=== PATIENT | female | born 1935 | race African-American/Black ===

== ENCOUNTER 2018-03-19 13:06 | Inpatient (IN) | payer MEDICARE ==
--- NOTE | 2018-03-19 14:12 | Emergency Department Report ---
ED Chest Pain HPI - General Chief Complaint: Chest Pain Stated Complaint: CHEST PAIN Time Seen by Provider: 03/19/18 13:42 Source: patient, educational sign language interpreter Mode of arrival: Ambulatory Limitations: Language Barrier - History of Present Illness Initial Comments: 82-year-old female with history of CAD with stents in the past presents to the ED with complaints of chest pain since 1 AM. Patient describes the pain as pressure and heaviness, with associated shortness of breath. The patient felt like she was unable to catch her breath. Patient states the symptoms were constant for 3 hours. Per granddaughter, patient performed an ritual known as coin rubbing. Fleming was rubbed over anterior and posterior chest wall. Patient reported improvement of pain following this. Granddaughter states when she was driving the patient to the ER she noticed the patient was sweating profusely. Patient now reports improvement of pain, no shortness of breath at this time. Patient states over the last couple days she felt like she was getting sick, with headache and fevers. Patient did not get flu shot this year. MD Complaint: chest pain -: hour(s) (12) Onset: during rest Pain Location: substernal Pain Radiation: none Severity: moderate Quality: pressure Consistency: constant Improves With: other (massaging chest, coin rubbing on chest wall) Worsens With: nothing re: diaphoresis, dyspnea. denies: nausea, vomting Other Symptoms: fever. denies: cough, leg swelling Treatments Prior to Arrival: none - Related Data Home Medications Medication Instructions Recorded Confirmed Last Taken No Known Home Medications [No 03/19/18 03/19/18 Unknown Reported Home Medications] Allergies Allergy/AdvReac Type Severity Reaction Status Date / Time No Known Allergies Allergy Unverified 09/19/13 14:04 Heart Score - HEART Score History: Moderately suspicious EKG: Non-specific Age: > 65 Risk factors: > 3 risk factors or hx of atherosclerotic disease Troponin: < normal limit HEART Score: 6 ED Review of Systems ROS: Stated complaint: CHEST PAIN Other details as noted in HPI Comment: All other systems reviewed and negative Constitutional: diaphoresis, fever Respiratory: shortness of breath. denies: cough Cardiovascular: chest pain Gastrointestinal: denies: abdominal pain, nausea, vomiting Musculoskeletal: other (denies leg pain and swelling) Neurological: headache ED Past Medical Hx - Past Medical History Previous Medical History?: Yes Hx CVA: Yes Hx HIV: No Additional medical history: SANJUANITA - Surgical History Past Surgical History?: Yes Additional Surgical History: cataracts - Social History Smoking Status: Never Smoker Substance Use Type: None - Medications Home Medications: Home Medications Medication Instructions Recorded Confirmed Last Taken Type No Known Home Medications [No 03/19/18 03/19/18 Unknown History Reported Home Medications] ED Physical Exam - General Limitations: Language Barrier General appearance: alert, in no apparent distress - Head Head exam: Present: atraumatic, normocephalic - Eye Eye exam: Present: normal appearance - ENT ENT exam: Present: mucous membranes moist - Neck Neck exam: Present: normal inspection - Respiratory Respiratory exam: Present: rales (minimal rales in left lung base). Absent: respiratory distress - Cardiovascular Cardiovascular Exam: Present: regular rate, normal rhythm - GI/Abdominal GI/Abdominal exam: Present: soft. Absent: distended, tenderness - Extremities Exam Extremities exam: Absent: pedal edema, calf tenderness - Neurological Exam Neurological exam: Present: alert, oriented X3 - Psychiatric Psychiatric exam: Present: normal affect, normal mood - Skin Skin exam: Present: warm, dry, intact, normal color, other (bruising to anterior and posterior chest wall from coin rubbing) ED Course Vital Signs 03/19/18 03/19/18 03/19/18 13:28 13:54 14:00 Temperature 98.7 F Pulse Rate 61 Pulse Rate [ Apical] Pulse Rate [ Left Radial] Pulse Rate [ Right Radial] Respiratory 16 Rate Blood Pressure 111/47 O2 Sat by Pulse 100 98 98 Oximetry 03/19/18 03/19/18 03/19/18 14:10 14:20 14:30 Temperature Pulse Rate Pulse Rate [ Apical] Pulse Rate [ Left Radial] Pulse Rate [ Right Radial] Respiratory Rate Blood Pressure O2 Sat by Pulse 97 97 98 Oximetry 03/19/18 03/19/18 03/19/18 14:40 14:50 15:01 Temperature Pulse Rate 67 79 Pulse Rate [ Apical] Pulse Rate [ Left Radial] Pulse Rate [ Right Radial] Respiratory 20 17 Rate Blood Pressure 126/62 126/62 120/74 O2 Sat by Pulse 97 97 98 Oximetry 03/19/18 03/19/18 03/19/18 15:11 15:25 15:31 Temperature Pulse Rate 67 72 76 Pulse Rate [ Apical] Pulse Rate [ Left Radial] Pulse Rate [ Right Radial] Respiratory 22 15 16 Rate Blood Pressure 120/74 120/74 120/74 O2 Sat by Pulse 98 96 98 Oximetry 03/19/18 03/19/18 03/19/18 15:41 15:51 16:01 Temperature Pulse Rate 76 72 72 Pulse Rate [ Apical] Pulse Rate [ Left Radial] Pulse Rate [ Right Radial] Respiratory 15 20 25 H Rate Blood Pressure 120/74 120/74 120/74 O2 Sat by Pulse 99 98 97 Oximetry 03/19/18 03/19/18 03/19/18 16:11 16:21 16:31 Temperature Pulse Rate 71 69 69 Pulse Rate [ Apical] Pulse Rate [ Left Radial] Pulse Rate [ Right Radial] Respiratory 19 22 22 Rate Blood Pressure 120/74 120/74 120/74 O2 Sat by Pulse 98 98 97 Oximetry 03/19/18 03/19/18 03/19/18 16:41 16:51 16:55 Temperature Pulse Rate 67 66 Pulse Rate [ 61 Apical] Pulse Rate [ 61 Left Radial] Pulse Rate [ 61 Right Radial] Respiratory 20 19 18 Rate Blood Pressure 120/74 120/74 O2 Sat by Pulse 98 98 98 Oximetry ED Medical Decision Making - Lab Data Result diagrams: 03/19/18 14:01 03/19/18 14:01 - EKG Data -: EKG Interpreted by Ma EKG shows normal: sinus rhythm, axis, intervals Rate: normal - EKG Data Interpretation: LVH, other (RBBB, T wave inversions inferolaterally, ) - Radiology Data Radiology results: report reviewed, image reviewed - Medical Decision Making 82-year-old female with chest pain and shortness of breath today. History of CAD in the past with stent placement. Not currently taking any medications. EKG shows right bundle branch block. Troponin within normal limits, however d- dimer elevated. CTA was ordered to r/o PE, which is negative. Chest x-ray shows only cardiomegaly, no infiltrate or pulmonary edema. Vital signs normal. Will admit to hospitalist, Dr Neely. - Differential Diagnosis ACS, PE, pneumonia, pulm edema, influenza, bronchitis Critical care attestation.: If time is entered above; I have spent that time in minutes in the direct care of this critically ill patient, excluding procedure time. ED Disposition Clinical Impression: Chest pain Disposition: DC- OP ADMIT IP TO THIS HOSP Is pt being admited?: Yes Condition: Stable Time of Disposition: 15:21
[2018-03-19 14:13] LABS: Basophils % (Auto) 0.2 % (0.0-1.8); Eosinophils % (Auto) 0.8 % (0.0-4.3); Hematocrit 35.7 % (30.3-42.9); Hemoglobin 11.9 gm/dl (10.1-14.3); Lymphocytes # (Auto) 1.4 K/mm3 (1.2-5.4); Lymphocytes % (Auto) 25.5 % (13.4-35.0); Mean Corpuscular HGB Conc 33 % (30-34); Mean Corpuscular Volume 88 fl (79-97); Monocytes # (Auto) 0.5 K/mm3 (0.0-0.8); Monocytes % (Auto) 9.9 % (0.0-7.3); Platelet Count 175 K/mm3 (140-440); Red Blood Count 4.04 M/mm3 (3.65-5.03); Red Cell Distribution Width 13.9 % (13.2-15.2)
[2018-03-19 14:23] LABS: INR 0.85 (0.87-1.13)
[2018-03-19 14:24] LABS: Partial Thromboplastin Time 30.6 Sec. (24.2-36.6)
[2018-03-19 14:42] LABS: Bilirubin,Urine NEG (Negative); Blood,Urine SM (Negative); Color,Urine Straw (Yellow); Protein,Urine <15 mg/dL mg/dL (Negative); RBC,Urine < 1.0 /HPF (0.0-6.0); Urobilinogen,Urine < 2.0 mg/dL (<2.0)
[2018-03-19 14:45] LABS: WBC,Urine < 1.0 /HPF (0.0-6.0)
[2018-03-19 14:55] LABS: BUN/Creatinine Ratio 22; Blood Urea Nitrogen 11 mg/dL (7-17); Calcium 8.5 mg/dL (8.4-10.2); Hemolysis Index 7
[2018-03-19] MEDS ORDERED: ASPIRIN PO ONE (15:01)
--- NOTE | 2018-03-19 15:14 | XRay Report ---
AP CHEST: HISTORY: chest pain Compared to 05/22/14. Mild cardiomegaly is evident which has increased slightly since the previous exam. Pulmonary veins are borderline. The lungs are clear. No evidence for pneumonia, pleural effusion or pneumothorax. IMPRESSION: Mild cardiomegaly. Lungs clear.
--- NOTE | 2018-03-19 15:21 | History and Physical Report ---
History of Present Illness Chief complaint: My chest hurts History of present illness: 82 YO Female with CVA, [place], CAD S/P Stent Placement, Severe Malnutrition presents to ED for evaluation. Pt states that she has experienced pain in her chest over the past 1 day with worsening symptoms over the past 3 hours. Pt is unable to speak Tajik, but her daughter is at bedside, and serves as cook fast food. As per daughter, the patient reports pain 5/10, substernal, nonradiating, not worsened with exertion, not relieved with rest, constant, crushing in nature, associated with shortness of breath. Pt transported to [facility] by her family for further care and evaluation. Pt seen and evaluated in ED and found to have symptoms con sistent with ACS, as well as Diastolic CHF. Pt admitted to telemetry. Cardiology consulted in ED. Pt denies fever, chills, palpitations, NVD, Trauma, productive cough, skin rash, or recent ill contacts. Past History Past Medical History: acute [place], CAD, stroke, other (Malnutrition) Past Surgical History: cataract removal Social history: Family history: no significant family history (reviewed) Medications and Allergies Allergies Allergy/AdvReac Type Severity Reaction Status Date / Time No Known Allergies Allergy Unverified 09/19/13 14:04 Home Medications Medication Instructions Recorded Confirmed Last Taken Type No Known Home Medications [No 03/19/18 03/19/18 Unknown History Reported Home Medications] Review of Systems Constitutional: no weight loss, no weight gain, no fever, no chills Ears, nose, mouth and throat: no ear pain, no ear discharge, no tinnitis, no decreased hearing, no nose pain Breasts: no change in shape, no swelling, no mass Cardiovascular: chest pain, shortness of breath, no orthopnea, no palpitations, no rapid/irregular heart beat Respiratory: no cough, no cough with sputum, no excessive sputum, no hemoptysis Gastrointestinal: no nausea, no vomiting Genitourinary Female: no pelvic pain, no flank pain, no menorrhagia, no dysuria Rectal: no pain, no incontinence, no bleeding Musculoskeletal: no neck stiffness, no neck pain, no shooting arm pain, no arm numbness/tingling, no low back pain Integumentary: no rash, no pruritis, no redness, no sores, no wounds, no jaundice Neurological: no paralysis, no weakness, no parathesias, no numbness, no seizure s, no syncope, no tremors Psychiatric: no memory loss, no change in sleep habits, no sleep disturbances, no insomnia, no hypersomnia, no change in appetite, no change in libido, no suicidal ideation Endocrine: no cold intolerance, no heat intolerance, no polyphagia, no excessive thirst, no polydipsia, no polyuria, no nocturia Hematologic/Lymphatic: no easy bruising, no easy bleeding, no lymphadenopathy, no lymphedema Allergic/Immunologic: no urticaria, no allergic rhinitis, no wheezing, no persi stent infections, no anaphylaxis, no angioedema Exam - Constitutional Vitals: Temp Pulse Resp BP Pulse Ox 98.7 F 61 16 111/47 100 03/19/18 13:28 03/19/18 13:28 03/19/18 13:28 03/19/18 13:28 03/19/18 13:28 General appearance: Present: mild distress, cachectic - EENT Eyes: Present: PERRL ENT: hearing intact, clear oral mucosa - Neck Neck: Present: supple, normal ROM - Respiratory Respiratory effort: normal Respiratory: bilateral: CTA - Cardiovascular Heart Sounds: Present: S1 & S2. Absent: rub, click - Extremities Extremities: pulses symmetrical, No edema Peripheral Pulses: within normal limits - Abdominal General gastrointestinal: Present: soft, non-tender, non-distended, normal bowel sounds Female genitourinary: Present: normal - Integumentary Integumentary: Present: clear, warm, dry - Musculoskeletal Musculoskeletal: gait normal, strength equal bilaterally - Psychiatric Psychiatric: appropriate mood/affect, intact judgment & insight - Neurologic Neurologic: CNII-XII intact, moves all extremities Results - Labs CBC & Chem 7: 03/19/18 14:03/19/18 14:01 Labs: Abnormal lab results 03/19/18 03/19/18 03/19/18 Range/Units 14: 14: 14:01 [place] % (Auto) 9.9 H (0.0-7.3) % PT 12.0 L (12.2-14.9) Sec. INR 0.85 L (0.87-1.13) D-Dimer 930.72 H (0-234) ng/mlDDU Creatinine 0.5 L (0.7-1.2) mg/dL Glucose 106 H (65-100) mg/dL NT-Pro-B Natriuret Pep 4106 H (0-900) pg/mL Ur Specific [place] (1.003-1.030) 03/19/18 Range/Units 14:30 [place] % (Auto) (0.0-7.3) % PT (12.2-14.9) Sec. INR (0.87-1.13) D-Dimer (0-234) ng/mlDDU Creatinine (0.7-1.2) mg/dL Glucose (65-100) mg/dL NT-Pro-B Natriuret Pep (0-900) pg/mL Ur Specific [place] 1.002 L (1.003-1.030) Assessment and Plan - Patient Problems (1) ACS (acute coronary syndrome) Current Visit: Yes Status: Acute Plan to address problem: Admit to telemetry, cardiology consulted in ED, Morphine, supplemental oxygen, nitro, aspirin, (2) Diastolic CHF Current Visit: Yes Status: Acute Qualifiers: Heart failure chronicity: acute on chronic Qualified Code(s): I50.33 - Acute on chronic diastolic (congestive) heart failure Plan to address problem: Admit to telemetry, strict I/O, daily weight, monitor uop q shift, chest x ray, bnp, supportive care. Echo, supplemental oxygen. (3) Malnutrition Current Visit: Yes Status: Acute Qualifiers: Protein-calorie malnutrition severity: severe Plan to address problem: Encourage increased protein intake, (4) DVT prophylaxis Current Visit: Yes Status: Acute Plan to address problem: SCD to BLE while in bed.
[2018-03-19] MEDS ORDERED: PROVENTIL IH PRN (15:24)
[2018-03-19] MEDS ORDERED: MORPHINE IV PRN (15:24)
[2018-03-19] MEDS ORDERED: NITROSTAT SL PRN (15:24)
[2018-03-19] MEDS ORDERED: ZOFRAN IV PRN (15:24)
[2018-03-19] MEDS ORDERED: TYLENOL PO PRN (15:24)
[2018-03-19] MEDS ORDERED: SODIUM CHLORIDE FLUSH SYRINGE 10 ML IV PRN ×2 (15:24)
[2018-03-19] MEDS ORDERED: ANTIVERT PO PRN (15:28)
[2018-03-19] MEDS ORDERED: BABY ASPIRIN PO STA (15:32)
--- NOTE | 2018-03-19 15:36 | Cat Scan Report ---
CTA CHEST: HISTORY: chest pain. COMPARISON: none. TECHNIQUE: Helical CT in 1.25mm intervals following IV contrast. Pulmonary embolus protocol. Sagittal and coronal reformatted images. Rotational MIP images. FINDINGS: Contrast bolus is satisfactory. No pulmonary embolus is identified. Thyroid gland: Normal. Tracheobronchial tree: Normal. Esophagus: Normal. Heart: Mild cardiomegaly. Pericardium: Normal. Mediastinum: Normal. Lung Olivarez: Normal. Pleural Spaces: Normal. Musculoskeletal: Osteopenia. Mild scoliosis and degenerative changes are noted in the spine. No fracture or suspicious bony lesion. IMPRESSION: No evidence for pulmonary embolus. Mild cardiomegaly.
[2018-03-19] MEDS ORDERED: ULTRAM PO PRN (15:39)
[2018-03-19] MEDS: SODIUM CHLORIDE FLUSH SYRINGE 10 ML IV SCH (21:27)
[2018-03-19] MEDS ORDERED: NON-FORMULARY (Rosuvastatin 40 MG) PO SCH (22:00)
--- NOTE | 2018-03-20 09:04 | Consultation ---
History of Present Illness Consult date: 03/20/18 Requesting physician: HELLEN BRUNO Consult reason: chest pain, congestive heart failure History of present illness: The patient is an 82 year old female with a past medical history of CAD, s/p [facility] She has been seen in our office in the past by Dr. Chang Armas (last seen 11/2015). She presented with complaints of chest pain and SOB. She does not speak Brazilian and her son at bedside provides translation. Her chest pain began Sunday evening and lasted through the night. She presented to the ED yesterday morning. She describes her chest pain as a midsternal aching which is aggravated by coughing and deep inspiration. The pain is different from her STEMI in 2014. The pain has currently resolved. She denies any palpitations, n/v, diaphoresis, dizziness or syncope. She has not seen a doctor since 2015 and has not been taking any prescription medications. Echo 10/2014 showed EF 40-45%, apex wall severely hypokinetic, mid anterior septal wall mildly to mod hypokinetic, impaired relaxation. PET stress test from May, revealed a large anterior and anteroapical scar without evidence of ischemia. Gated wall motion reveals anteroapical dyskinesis with a calculated EF of 41%. Past History Past Medical History: acute [place], CAD Past Surgical History: cataract removal Social history: Family history: no significant family history (reviewed) Medications and Allergies Allergies Allergy/AdvReac Type Severity Reaction Status Date / Time No Known Allergies Allergy Unverified 09/19/13 14:04 Home Medications Medication Instructions Recorded Confirmed Last Taken Type No Known Home Medications [No 03/19/18 03/19/18 Unknown History Reported Home Medications] Active Meds: Active Medications Acetaminophen (Tylenol) 650 mg PO Q4H PRN PRN Reason: Pain MILD(1-3)/Fever >100.5/PALACIOS Albuterol (Proventil) 2.5 mg IH Q4HRT PRN PRN Reason: Shortness Of Breath Aspirin (Ecotrin) 325 mg PO QDAY [facility] Atorvastatin Calcium (Lipitor) 80 mg PO QHS [facility] Last Admin: 03/19/18 21:26 Dose: 80 mg Documented by: Clopidogrel Bisulfate (Plavix) 75 mg PO QDAY [facility] Meclizine HCl (Antivert) 25 mg PO TID PRN PRN Reason: Vertigo Morphine Sulfate (Morphine) 2 mg IV Q4H PRN PRN Reason: Pain, Moderate (4-6) Nitroglycerin (Nitrostat) 0.4 mg SL Q5M PRN PRN Reason: Chest Pain Ondansetron HCl (Zofran) 4 mg IV Q8H PRN PRN Reason: Nausea And Vomiting Sodium Chloride (Sodium Chloride Flush Syringe 10 Ml) 10 ml IV BID MONA Last Admin: 03/19/18 21:27 Dose: 10 ml Documented by: Sodium Chloride (Sodium Chloride Flush Syringe 10 Ml) 10 ml IV PRN PRN PRN Reason: LINE FLUSH Sodium Chloride (Sodium Chloride Flush Syringe 10 Ml) 10 ml IV PRN PRN PRN Reason: LINE FLUSH Tramadol HCl (Ultram) 50 mg PO Q6H PRN PRN Reason: Pain, Moderate (4-6) Review of Systems Constitutional: no weight loss, no weight gain, no fever, no chills, no sweats Ears, nose, mouth and throat: no ear pain, no nose pain, no sinus pressure, no sinus pain Cardiovascular: chest pain, shortness of breath, no orthopnea, no palpitations, no rapid/irregular heart beat, no edema, no syncope, no lightheadedness, no dyspnea on exertion, no high blood pressure, no leg edema, no decreased exercise tolerance Respiratory: cough, shortness of breath, pain on inspiration, no cough with sputum, no dyspnea on exertion, no congestion, no wheezing Gastrointestinal: no abdominal pain, no nausea, no vomiting, no diarrhea, no constipation, no change in bowel habits Genitourinary Female: no pelvic pain, no flank pain, no dysuria, no urinary frequency, no urgency Musculoskeletal: no neck stiffness, no neck pain, no shooting arm pain, no arm numbness/tingling, no low back pain, no shooting leg pain, no leg numbness/tingling Integumentary: no rash, no pruritis, no redness, no sores, no wounds Neurological: no head injury, no paralysis, no weakness, no parathesias, no numbness, no tingling, no seizures, no syncope Psychiatric: no anxiety Endocrine: no cold intolerance, no heat intolerance Hematologic/Lymphatic: no easy bruising, no easy bleeding Allergic/Immunologic: no urticaria, no wheezing Physical Examination Vital Signs Temp Pulse Resp BP Pulse Ox 98.7 F 61 16 111/47 100 03/19/18 13:28 03/19/18 13:28 03/19/18 13:28 03/19/18 13:28 03/19/18 13:28 General appearance: no acute distress HEENT: Positive: PERRL, Normocephaly, Mucus Membranes Moist Neck: Positive: neck supple, trachea midline Cardiac: Positive: Reg Rate and Rhythm, S1/S2 Lungs: Positive: clear to auscultation Neuro: Positive: Grossly Intact Abdomen: Positive: Soft. Negative: Tender Skin: Positive: Clear. Negative: Rash, Wound Musculoskeletal: No Pain Extremities: Absent: edema Results 03/19/18 14:01 03/19/18 14:01 Coagulation 03/19/18 Range/Units 14:01 PT 12.0 L (12.2-14.9) Sec. INR 0.85 L (0.87-1.13) APTT 30.6 (24.2-36.6) Sec. CBC 03/19/18 Range/Units 14:01 WBC 5.3 (4.5-11.0) K/mm3 RBC 4.04 (3.65-5.03) M/mm3 Hgb 11.9 (10.1-14.3) gm/dl Hct 35.7 (30.3-42.9) % Plt Count 175 (140-440) K/mm3 Lymph # 1.4 (1.2-5.4) K/mm3 [place] # 0.5 (0.0-0.8) K/mm3 Eos # 0.0 (0.0-0.4) K/mm3 Baso # 0.0 (0.0-0.1) K/mm3 Comprehensive Metabolic Panel 03/19/18 Range/Units 14:01 Sodium 139 (137-145) mmol/L Potassium 4.3 (3.6-5.0) mmol/L Chloride 103.2 (98-107) mmol/L Carbon Dioxide 25 (22-30) mmol/L BUN 11 (7-17) mg/dL Creatinine 0.5 L (0.7-1.2) mg/dL Glucose 106 H (65-100) mg/dL Calcium 8.5 (8.4-10.2) mg/dL - Imaging and Cardiology Echo: report reviewed (10/2014 showed EF 40-45%, apex wall severely hypokinetic, mid anterior septal wall mildly to mod hypokinetic, impaired relaxation. ) EKG: report reviewed, image reviewed EKG interpretations - Telemetry EKG Rhythm: Sinus Rhythm - EKG Sinus rhythms and dysrhythmias: sinus rhythm AV and intraventricular conduction: right bundle branch block Chamber hypertrophy or enlargement: left ventricular hypertro Repolarization changes or abnormalities: repolarization abn secondary to ventricular hypertrophy Assessment and Plan DDimer elevated - chest CTA negative for PE. AMI ruled out. Agree with present cardiac regimen. Proceed with lexiscan MPI stress test. Await echo. The patient has been seen in conjunction with Dr. Ramírez who agrees with the assessment and plan of care. - Patient Problems (1) Chest pain Current Visit: Yes Status: Acute (2) Dyspnea Current Visit: Yes Status: Acute (3) CAD (coronary artery disease) Current Visit: Yes Status: Chronic (4) Stented coronary artery Current Visit: Yes Status: Chronic (5) History of ST elevation myocardial infarction (STEMI) Current Visit: Yes Status: Chronic
[2018-03-20] MEDS: ECOTRIN PO SCH (09:39)
[2018-03-20] MEDS: PLAVIX PO SCH (09:39)
[2018-03-20] MEDS ORDERED: LEXISCAN IV ONE ×2 (10:49→10:50)
--- NOTE | 2018-03-20 15:23 | Progress Note ---
Assessment and Plan Assessment and plan: 82 YO Female with CVA, [place], CAD S/P Stent Placement, Severe Malnutrition presents to ED for evaluation. Pt states that she has experienced pain in her chest over the past 1 day with worsening symptoms over the past 3 hours. Pt is unable to speak Guinean, but her daughter is at bedside, and serves as brewery representative. As per daughter, the patient reports pain 5/10, substernal, nonradiating, not worsened with exertion, not relieved with rest, constant, crushing in nature, associated with shortness of breath. Pt transported to [facility] by her family for further care and evaluation. Pt seen and evaluated in ED and found to have symptoms consistent with ACS, as well as Diastolic CHF. Pt admitted to telemetry. Car diology consulted in ED. Pt denies fever, chills, palpitations, NVD, Trauma, productive cough, skin rash, or recent ill contacts. Atypical Chest pain Diastolic CHF Moderate Protein calorie Malnutrition Secondary Coagulopathy PLAN Supportive care Await Lexiscan MPI stress test Negative CTA for PE Check doppler to rule out DVT Continue otherwise with current management as directed by cardiology DVT/GI prophy Plan discussed with Daughter and patient. History Interval history: Patient is seen today for: Chest pain Seen and examined at bedside; 24hour events reviewed; nursing staff ; no adverse overnight events reported to me; Denies any chest pain, nausea, vomiting, diarrhea. On examination today the patient stated that she is much improved and would like to go home No fever noted blood pressure controlled Hospitalist Physical - Physical exam Narrative exam: VITAL SIGNS: Reviewed. GENERAL: The patient appeared well nourished and normally developed. Vital signs as documented. HEAD: No signs of head trauma. EYES: Pupils are equal. Extraocular motions intact. EARS: Hearing grossly intact. MOUTH: Oropharynx is normal. NECK: No adenopathy, no JVD. CHEST: Chest with mild bibasilar crackles more in expiratory breath sounds bilaterally. No wheezes, rales, or rhonchi. CARDIAC: Regular rate and rhythm. S1 and S2, without murmurs, gallops, or rubs. VASCULAR: No Edema. Peripheral pulses normal and equal in all extremities. ABDOMEN: Soft, without detectable tenderness. No sign of distention. No rebound or guarding, and no masses palpated. Bowel Sounds normal. MUSCULOSKELETAL: Good range of motion of all major joints. Extremities without clubbing, cyanosis or edema. NEUROLOGIC EXAM: Alert and oriented x 3. No focal sensory or strength deficits. Speech normal. Follows commands. PSYCHIATRIC: Mood normal. SKIN: No rash or lesions. - Constitutional Vitals: Temp Pulse Resp BP Pulse Ox 98.0 F 84 14 132/58 98 03/20/18 08:19 03/20/18 11:29 03/20/18 08:19 03/20/18 11:29 03/20/18 08:19 General appearance: Present: no acute distress Results - Labs CBC & Chem 7: 03/19/18 14:01 03/19/18 14:01 Labs: Laboratory Last Values WBC 5.3 K/mm3 (4.5-11.0) 03/19/18 14:01 RBC 4.04 M/mm3 (3.65-5.03) 03/19/18 14:01 Hgb 11.9 gm/dl (10.1-14.3) 03/19/18 14:01 Hct 35.7 % (30.3-42.9) 03/19/18 14:01 MCV 88 fl (79-97) 03/19/18 14:01 MCH 29 pg (28-32) 03/19/18 14:01 MCHC 33 % (30-34) 03/19/18 14:01 RDW 13.9 % (13.2-15.2) 03/19/18 14:01 Plt Count 175 K/mm3 (140-440) 03/19/18 14:01 Lymph % (Auto) 25.5 % (13.4-35.0) 03/19/18 14:01 Emanuel % (Auto) 9.9 % (0.0-7.3) H 03/19/18 14:01 Eos % (Auto) 0.8 % (0.0-4.3) 03/19/18 14:01 Baso % (Auto) 0.2 % (0.0-1.8) 03/19/18 14:01 Lymph # 1.4 K/mm3 (1.2-5.4) 03/19/18 14:01 Emanuel # 0.5 K/mm3 (0.0-0.8) 03/19/18 14:01 Eos # 0.0 K/mm3 (0.0-0.4) 03/19/18 14:01 Baso # 0.0 K/mm3 (0.0-0.1) 03/19/18 14:01 Seg Neutrophils % 63.6 % (40.0-70.0) 03/19/18 14:01 Seg Neutrophils # 3.4 K/mm3 (1.8-7.7) 03/19/18 14:01 PT 12.0 Sec. (12.2-14.9) L 03/19/18 14:01 INR 0.85 (0.87-1.13) L 03/19/18 14:01 APTT 30.6 Sec. (24.2-36.6) 03/19/18 14:01 D-Dimer 930.72 ng/mlDDU (0-234) H 03/19/18 14:01 Sodium 139 mmol/L (137-145) 03/19/18 14:01 Potassium 4.3 mmol/L (3.6-5.0) 03/19/18 14:01 Chloride 103.2 mmol/L (98-107) 03/19/18 14:01 Carbon Dioxide 25 mmol/L (22-30) 03/19/18 14:01 Anion Gap 15 mmol/L 03/19/18 14:01 BUN 11 mg/dL (7-17) 03/19/18 14:01 Creatinine 0.5 mg/dL (0.7-1.2) L 03/19/18 14:01 Estimated GFR > 60 ml/min 03/19/18 14:01 BUN/Creatinine Ratio 22 % 03/19/18 14:01 Glucose 106 mg/dL (65-100) H 03/19/18 14:01 Calcium 8.5 mg/dL (8.4-10.2) 03/19/18 14:01 Troponin T < 0.010 ng/mL (0.00-0.029) 03/19/18 20:06 NT-Pro-B Natriuret Pep 4106 pg/mL (0-900) H 03/19/18 14:01 Urine Color Straw (Yellow) 03/19/18 14:30 Urine Turbidity Clear (Clear) 03/19/18 14:30 Urine pH 7.0 (5.0-7.0) 03/19/18 14:30 Ur Specific Porter 1.002 (1.003-1.030) L 03/19/18 14:30 Urine Protein <15 mg/dl mg/dL (Negative) 03/19/18 14:30 Urine Glucose (UA) Neg mg/dL (Negative) 03/19/18 14:30 Urine Ketones Neg mg/dL (Negative) 03/19/18 14:30 Urine Blood Sm (Negative) 03/19/18 14:30 Urine Nitrite Neg (Negative) 03/19/18 14:30 Urine Bilirubin Neg (Negative) 03/19/18 14:30 Urine Urobilinogen < 2.0 mg/dL (<2.0) 03/19/18 14:30 Ur Leukocyte Esterase Neg (Negative) 03/19/18 14:30 Urine WBC (Auto) < 1.0 /HPF (0.0-6.0) 03/19/18 14:30 Urine RBC (Auto) < 1.0 /HPF (0.0-6.0) 03/19/18 14:30 Influenza A (Rapid) Negative (Negative) 03/19/18 14:18 Influenza B (Rapid) Negative (Negative) 03/19/18 14:18 Nutrition/Malnutrition Assess - Dietary Evaluation Nutrition/Malnutrition Findings: Nutrition Notes Start: 03/20/18 10:36 Freq: Status: Active Protocol: Document 03/20/18 10:36 LM (Rec: 03/20/18 11:04 LM [id number]) Co-Sign 03/20/18 10:36 OL Nutrition Notes Initial or Follow up Brief Note Height 4 ft 1 in Weight 44 kg [place] Body Weight (lbs) 45.0 BMI 28.4 Weight Status Appropriate Subjective/Other Information Screen for low BMI. Pt's weight in chart was recorded as 20 kg. Per nurse, pt's weight is 44 kg. Coreected weight in chart. Pt stated she has good appetite at home and eats 3 meals a day. Pt eats fish, chicken, rice, and vegetebles. Pt is petite and does not appear malnourished. Nutrition Intervention Revisit per MD consult or patient Sign Off request:
[2018-03-20] MEDS: SODIUM CHLORIDE FLUSH SYRINGE 10 ML IV SCH (22:00)
[2018-03-21 08:59] VITALS: BP 92/44
--- NOTE | 2018-03-21 11:07 | Discharge Summary ---
Providers - Providers Date of Admission: 03/19/18 15:24 Attending physician: KELTON FELDMAN MD 03/19/18 Consult to Cardiac Rehabilitation [CONS] Routine Reason For Exam: Phase I 03/19/18 15:25 Consult to Cardiology [CONS] Routine Consulting Provider: ANDREZ STREET Reason For Exam: acs/chf Primary care physician: MEMBERSHIP DIRECTOR Hospitalization Reason for admission: chest pain Condition: Stable Hospital course: 82 YO Female with CVA, [place], CAD S/P Stent Placement, Severe Malnutrition presents to ED for evaluation. Pt states that she has experienced pain in her chest over the past 1 day with worsening symptoms over the past 3 hours. Pt is unable to speak Turkmen, but her daughter is at bedside, and serves as water proofer. As per daughter, the patient reports pain 5/10, substernal, nonradiating, not worsened with exertion, not relieved with rest, constant, crushing in nature, associated with shortness of breath. Pt transported to [facility] by her family for further care and evaluation. Pt seen and evaluated in ED and found to have symptoms consistent with ACS, as well as Diastolic CHF. Pt admitted to telemetry. Cardiology consulted in ED. Pt denies fever, chills, palpitations, NVD, Trauma, productive cough, skin rash, or recent ill contacts. Recommended cardiac cath, and Lifvest patient declined will rather follow at the outpatient clinic with cardiology Per cardiology also S/p lexiscan MPI stress test yesterday which showed fixed defects, no sig ischemia, EF 38%. Echo reviewed - EF 20-25%, impaired relaxation, mild MR. Currently stable cardiac status. Chest pain and dyspnea resolved. In setting of cardiomyopathy, coronary angiography recommended to r/o ischemic CMP. However, pt wishes to discharge home and readdress [facility] as OP. Initiate low dose coreg and titrate as tolerated. Pt may discharge home from cardiology standpoint. Recommend pt follow up in our office with Dr. Ramírez within 1-2 weeks of hospital discharge ([phone]). Pt's son states he will call and make appt. Discharge Diagnosis Atypical Chest pain-cad Diastolic CHF Moderate Protein calorie Malnutrition Secondary Coagulopathy Cardiomyopathy-?Ischemic Disposition: DC/[place]-06 HOME UNDER HOME [facility] Time spent for discharge: 35 mins Core Measure Documentation - Palliative Care Palliative Care/ Comfort Measures: Not Applicable - Core Measures Any of the following diagnoses?: heart failure - Heart Failure Discharge Requirements ROSALINDA/ARB for LVSD if EF <40%: No Reason for no ROSALINDA/ARB: Hypotension Beta dayo at discharge: Yes Exam - Physical Exam Narrative exam: VITAL SIGNS: Reviewed. GENERAL: The patient appeared well nourished and normally developed. Vital signs as documented. HEAD: No signs of head trauma. EYES: Pupils are equal. Extraocular motions intact. EARS: Hearing grossly intact. MOUTH: Oropharynx is normal. NECK: No adenopathy, no JVD. CHEST: Chest with mild bibasilar crackles more in expiratory breath sounds bilaterally. No wheezes, rales, or rhonchi. CARDIAC: Regular rate and rhythm. S1 and S2, without murmurs, gallops, or rubs. VASCULAR: No Edema. Peripheral pulses normal and equal in all extremities. ABDOMEN: Soft, without detectable tenderness. No sign of distention. No hodan ound or guarding, and no masses palpated. Bowel Sounds normal. MUSCULOSKELETAL: Good range of motion of all major joints. Extremities without clubbing, cyanosis or edema. NEUROLOGIC EXAM: Alert and oriented x 3. No focal sensory or strength deficits. Speech normal. Follows commands. PSYCHIATRIC: Mood normal. SKIN: No rash or lesions. - Constitutional Vitals: Temp Pulse Resp BP Pulse Ox 98.2 F 84 16 92/44 97 03/21/18 08:56 03/21/18 08:56 03/21/18 08:56 03/21/18 08:56 03/21/18 08:56 Plan Activity: advance as tolerated, fall precautions Diet: low salt Special Instructions: record daily weights, record daily BP diary Follow up with: ART BELLA MD [Primary Care Provider] - 7 Days MIKA RAMÍREZ MD [Staff Physician] - 7 Days Forms: Work/School Release Form Prescriptions: AtorvaSTATin [Lipitor] 80 mg PO QHS #30 tablet Carvedilol [Coreg] 3.125 mg PO BID #60 tablet Clopidogrel [Plavix] 75 mg PO QDAY #30 tablet Nitroglycerin [Nitrostat] 0.4 mg SL Q5M PRN #14 tablet PRN Reason: Chest Pain
[2018-03-21] MEDS: ECOTRIN PO SCH (11:38)
[2018-03-21] MEDS: PLAVIX PO SCH (11:38)
--- NOTE | 2018-03-21 12:58 | Progress Note ---
Assessment and Plan S/p lexiscan MPI stress test yesterday which showed fixed defects, no sig ischemia, EF 38%. Echo reviewed - EF 20-25%, impaired relaxation, mild MR. Currently stable cardiac status. Chest pain and dyspnea resolved. In setting of cardiomyopathy, coronary angiography recommended to r/o ischemic CMP. However, pt wishes to discharge home and readdress [facility] as OP. Initiate low dose coreg and titrate as tolerated. Pt may discharge home from cardiology standpoint. Recommend pt follow up in our office with Dr. Ramírez within 1-2 weeks of hospital discharge ([phone]). Pt's son states he will call and make appt. The patient has been seen in conjunction with Dr. Ramírez who agrees with the assessment and plan of care. - Patient Problems (1) Chest pain Current Visit: Yes Status: Acute (2) Dyspnea Current Visit: Yes Status: Acute (3) CAD (coronary artery disease) Current Visit: Yes Status: Chronic (4) Stented coronary artery Current Visit: Yes Status: Chronic (5) History of ST elevation myocardial infarction (STEMI) Current Visit: Yes Status: Chronic Subjective Date of service: 03/21/18 Principal diagnosis: cp; hf Interval history: pt resting in bed, states she is feeling well today. Objective Last Vital Signs Temp 98.2 F 03/21/18 08:56 Pulse 84 03/21/18 08:56 Resp 16 03/21/18 08:56 BP 92/44 03/21/18 08:56 Pulse Ox 97 03/21/18 08:56 - Physical Examination General: No Apparent Distress HEENT: Positive: PERRL, Normocephaly, Mucus Membranes Moist Neck: Positive: neck supple, trachea midline Cardiac: Positive: Reg Rate and Rhythm, S1/S2 Lungs: Positive: clear to auscultation Neuro: Positive: Grossly Intact Abdomen: Positive: Soft. Negative: Tender Skin: Positive: Clear. Negative: Rash, Wound Musculoskeletal: No Pain Extremities: Absent: edema - Imaging and Cardiology EKG: report reviewed, image reviewed Echo: report reviewed (10/2014 showed EF 40-45%, apex wall severely hypokinetic, mid anterior septal wall mildly to mod hypokinetic, impaired relaxation. ) - EKG Sinus rhythms and dysrhythmias: sinus rhythm AV and intraventricular conduction: right bundle branch block Chamber hypertrophy or enlargement: left ventricular hypertro Repolarization changes or abnormalities: repolarization abn secondary to ventricular hypertrophy
--- NOTE | 2018-03-21 13:31 | Vascular Lab Report ---
FINAL REPORT EXAM: VL VENOUS DUPLEX LE BILAT HISTORY: DVT TECHNIQUE: Kenney scale with color flow and spectral waveform Doppler imaging. PRIORS: None. FINDINGS: There is no evidence of deep venous thrombosis in either lower extremity. Flow is demonstrated by color flow and spectral waveform Doppler imaging. There is appropriate augmentation and wall compression. IMPRESSION: There is no evidence for DVT in right or left lower extremity.
--- NOTE | 2018-03-21 15:24 | Treadmill Report ---
PROCEDURE: Cardiac nuclear perfusion REASON FOR STUDY: Shortness of breath. IMAGING PROTOCOL: The patient received 10 mCi of Technetium 99m Tetrofosmin for resting image and 28 mCi of Technetium 99m Tetrofosmin for stress imaging. The imaging for the whole procedure was completed 30-90 minutes following the initial injection of Technetium 99m Tetrofosmin. The SPECT imaging in the 180 degree arc was performed in the right anterior oblique projection. Computerized reconstruction of the images was performed for analysis. IMAGING RESULTS: Normal cavity size from stress to rest. Normal distribution in the anterolateral, inferior, lateral region, but there is a large absence in the septum, apical anteroseptal and inferoseptal region on stress and rest, had some improvement on stress with gated SPECT, EF of 38% with hypokinesis of the apical, apical septal regions with no significant ischemia. The patient infused Lexiscan with no EKG changes. SUMMARY: 1. Negative Lexiscan EKG. 2. No significant stress induced ischemia, but large infarction in apical, septal, moderate infarction in the septum and inferior septal regions with a normal perfusion in the lateral, anterolateral, inferolateral region with gated SPECT, ejection fraction 38% with wall motion abnormality in the apical, apical septal and anteroseptal regions. JOB# [id number] JEANETH/BELÉN
[2018-03-21] MEDS ORDERED: COREG PO SCH (22:00)
== END 2018-03-21 12:45 | disposition home or self-care (01) | DRG 291 ==
LOC: ED 13:06 → 4A 15:24
PROVIDERS: ADMIT Internal Medicine; ATTEND Internal Medicine
DX: I50.33 Acute on chronic diastolic (congestive) heart failure (principal); E43 Unspecified severe protein-calorie malnutrition; D68.9 Coagulation defect, unspecified; I25.5 Ischemic cardiomyopathy; I25.10 Atherosclerotic heart disease of native coronary artery without angina pectoris; Z68.29 Body mass index [BMI] 29.0-29.9, adult; Z95.5 Presence of coronary angioplasty implant and graft; I25.2 Old myocardial infarction; Z86.73 Personal history of transient ischemic attack (TIA), and cerebral infarction without residual deficits; Z98.49 Cataract extraction status, unspecified eye
CPT/HCPCS: 36415; 71045; 71275; 78452; 80048; 81001; 83880; 84484; 85025; 85379; 85610; 85730; 87400; 93005; 93010; 93017; 93306; 93970; G0378; A9270-GY; A9502; J2785; Q9967

== ENCOUNTER 2019-02-04 10:49 | Observation (INO) | payer MEDICARE ==
[2019-02-04] MEDS ORDERED: SODIUM CHLORIDE IRRI 1000 ML 1 ML, .VANCOMYCIN VIAL 1,000 MG IR ONE (11:46)
[2019-02-04] MEDS ORDERED: ceFAZolin/Water 2 GM/20 ML 2 GM/20 ML SYRINGE IV NR (12:00)
--- NOTE | 2019-02-04 12:21 | Anesthesia Consultation ---
Anesthesia Consult and Med Hx Date of service: 02/04/19 - Airway Anesthetic Teeth Evaluation: Good ROM Head & Neck: Adequate Mental/Hyoid Distance: Adequate Mallampati Class: Class II Intubation Access Assessment: Good - Pulmonary Exam CTA: Yes - Cardiac Exam Cardiac Exam: RRR - Pre-Operative Health Status ASA Pre-Surgery Classification: ASA3 Proposed Anesthetic Plan: General - Cardiovascular System Hx Heart Attack/AMI: Yes (2014) Hx Percutaneous Transluminal Coronary Angioplasty (PTCA): Yes - Central Nervous System CVA: Yes Hx Psychiatric Problems: No - Other Systems Hx Cancer: No
--- NOTE | 2019-02-04 12:21 | Anesthesia Day of Surgery ---
Anesthesia Day of Surgery - Day of Surgery Patient Examined: Yes Patient H&P Reviewed: Yes Patient is NPO: Yes
[2019-02-04 12:27] LABS: Basophils % (Auto) 0.2 % (0.0-1.8); Eosinophils # (Auto) 0.2 K/mm3 (0.0-0.4); Eosinophils % (Auto) 4.5 % (0.0-4.3); Hematocrit 38.1 % (30.3-42.9); Hemoglobin 12.3 gm/dl (10.1-14.3); Lymphocytes # (Auto) 1.4 K/mm3 (1.2-5.4); Lymphocytes % (Auto) 27.5 % (13.4-35.0); Mean Corpuscular HGB Conc 32 % (30-34); Mean Corpuscular Volume 91 fl (79-97); Monocytes # (Auto) 0.4 K/mm3 (0.0-0.8); Platelet Count 176 K/mm3 (140-440); Red Cell Distribution Width 14.3 % (13.2-15.2)
[2019-02-04] MEDS ORDERED: SODIUM CHLORIDE IRRI 1000 ML 1,000 ML, .VANCOMYCIN VIAL 1,000 MG IR NR (12:30)
[2019-02-04 12:45] LABS: INR 0.87 (0.87-1.13)
[2019-02-04 12:46] LABS: Partial Thromboplastin Time 34.3 Sec. (24.2-36.6)
[2019-02-04 13:23] LABS: BUN/Creatinine Ratio 21; Blood Urea Nitrogen 17 mg/dL (7-17); Calcium 9.1 mg/dL (8.4-10.2); Hemolysis Index 9
[2019-02-04] MEDS ORDERED: SODIUM CHLORIDE IRRI 500 ML 500 ML IR ONE (13:37)
[2019-02-04] MEDS ORDERED: ceFAZolin/Water 2 GM/20 ML 2 GM/20 ML SYRINGE IV ONE (13:38)
[2019-02-04] MEDS ORDERED: diphenhydrAMINE 50 MG/ML VIAL ONE (14:28)
[2019-02-04] MEDS ORDERED: SODIUM CHLORIDE 0.9% 500 ML 500 ML ONE (14:28)
[2019-02-04] MEDS: fentaNYL 100 MCG/2 ML INJ ONE ×3 (14:42→14:58)
[2019-02-04] MEDS: MIDAZOLAM 2 MG/2 ML INJ ONE ×3 (14:42→14:58)
[2019-02-04] MEDS: LIDOCAINE (1%) 10 MG/1 ML VIAL 20 ML MDV ONE ×2 (14:42→14:58)
[2019-02-04] MEDS: BUPIVACAINE/PF (0.5%) 5 MG/1 ML 30 ML VIAL INFILTRATI ONE ×2 (14:43→14:58)
[2019-02-04] MEDS ORDERED: .VANCOMYCIN VIAL 1,000 MG in SODIUM CHLORIDE IRRI 1000 ML 1,000 ML IRRIGATION ONE (14:46)
--- NOTE | 2019-02-04 17:45 | XRay Report ---
CHEST 1 VIEW INDICATION / CLINICAL INFORMATION: Pacemaker Postop. COMPARISON: 04/25/2018 FINDINGS: SUPPORT DEVICES: Left-sided pacemaker HEART / MEDIASTINUM: No significant abnormality. LUNGS / PLEURA: No significant pulmonary or pleural abnormality. No pneumothorax. ADDITIONAL FINDINGS: No significant additional findings. IMPRESSION: A left-sided pacemaker has been placed with the lead superimposed over the expected position of the p roximal right ventricle. No evidence of a left-sided pneumothorax. Signer Name: Cholo Arguello MD FACR Signed: 02/04/2019 5:40 PM Workstation Name: [id number]
[2019-02-04] MEDS: HYDROcodone/ACETAMINOPHEN 5-325 MG TAB PO PRN (18:27)
[2019-02-04] MEDS: ceFAZolin/NS 1 GM/50 ML 1 GM/50 ML BAG IV SCH (21:57)
[2019-02-05] MEDS: HYDROcodone/ACETAMINOPHEN 5-325 MG TAB PO PRN ×2 (05:02→11:56)
[2019-02-05] MEDS: ceFAZolin/NS 1 GM/50 ML 1 GM/50 ML BAG IV SCH (05:05)
--- NOTE | 2019-02-05 10:15 | Short Stay Summary ---
Short Stay Documentation Date of service: 02/05/19 - History H&P: obtained from office - Allergies and Medications Current Medications: Allergies No Known Allergies Allergy (Verified 04/24/18 08:33) Home Medications Medication Instructions Recorded Confirmed Last Taken Type Aspirin [Aspir-Low] 81 mg PO DAILY 04/24/18 02/04/19 02/03/19 History Clopidogrel [Plavix] 75 mg PO QDAY #30 tablet 04/25/18 02/04/19 02/03/19 Rx Rosuvastatin Calcium 40 mg PO DAILY 02/04/19 02/04/19 02/03/19 History carvediloL [Coreg] 6.25 mg PO BID 02/04/19 02/04/19 02/03/19 History Active Medications Acetaminophen/Hydrocodone Bitart ([place] 5/325) 1 each PO Q6H PRN PRN Reason: Pain, Moderate (4-6) Last Admin: 02/05/19 05:02 Dose: 1 each Documented by: - Physical exam General appearance: no acute distress Integumentary: other (left pectoralis PPM implantation site pressure dressing removed, site covered with telfa and tegaderm dressing, telfa with minimal amount of old blood noted, no evidence of current bleeding or hematoma. pt note to have skin blister over left scapula after pressure dressing was removed. ) Lungs: Clear to auscultation Heart: Regular rate, Normal S1, Normal S2 Gastrointestinal: normal, normoactive bowel sounds Extremities: no ischemia, pulses intact, pulses symmetrical Neurological: Normal gait, Normal speech, Strength at 5/5 X4 ext - Brief post op/procedure progress note Date of procedure: 02/04/19 Pre-op diagnosis: CMP Post-op diagnosis: same Procedure: AICD implantation - see operative report Estimated blood loss: none Condition: stable - Hospital course Hospital course: 83-year-old female with a history of coronary artery disease/PCI/stent/proximal LAD/proximal D1, ischemic cardiomyopathy EF 25-30%, hyperlipidemia, and a history of stroke who presented yesterday for scheduled AICD implantation. She underwent procedure and was admitted for observation overnight. Post procedure CXR with NAF, no pneumothorax. Device interrogation this AM showed normal device function. She is medically stable for discharge home today. - Disposition Condition at discharge: Good Disposition: DC-01 TO HOME OR SELFCARE - Discharge Diagnoses (1) Ischemic cardiomyopathy Status: Chronic (2) Automatic implantable cardioverter-defibrillator in situ Status: Chronic (3) CAD (coronary artery disease) Status: Chronic (4) Stented coronary artery Status: Chronic Short Stay Discharge Plan Activity: other (as per discharge instructions) Diet: low fat, low cholesterol, low salt Wound: other (as per discharge instructions) Follow up with: PRIMARY SHAYNE, [Primary Care Provider] - 7 Days PAPO BLACKMON MD [Staff Physician] - 7 Days ([place] office for post- op incision check on 02/13/2019 @ 8:30AM) RODGER BHAKTA MD [Staff Physician] - 7 Days ([place] office, 02/14/2019 @ 3:00PM) Prescriptions: HYDROcodone/APAP 5-325 [[place] 5-325 mg TAB] 1 each PO Q6H PRN #10 tablet PRN Reason: Pain, Moderate (4-6)
[2019-02-05 11:57] VITALS: BP 116/45
== END 2019-02-05 14:53 | disposition home or self-care (01) ==
LOC: CATHLABREC 10:49 → 4A 14:48
PROVIDERS: ADMIT Internal Medicine Cardiovascular Disease; ATTEND Internal Medicine Cardiovascular Disease
DX: I25.5 Ischemic cardiomyopathy (principal); I25.10 Atherosclerotic heart disease of native coronary artery without angina pectoris; Z95.5 Presence of coronary angioplasty implant and graft; Z95.810 Presence of automatic (implantable) cardiac defibrillator; Z79.82 Long term (current) use of aspirin; Z79.899 Other long term (current) drug therapy
CPT/HCPCS: 33249; 36415; 71045; 80048; 85025; 85610; 85730; 93005; 93010; 96365; 96366; C1722; C1777; C1892; G0378; J0690; J3010; J3370; J7040; J1200; J2250; Q9967

== ENCOUNTER 2020-12-24 10:55 | Emergency (ER) | payer MEDICARE ==
--- NOTE | 2020-12-24 12:12 | Emergency Department Report ---
HPI - General Chief Complaint: Dyspnea/Respdistress Time Seen by Provider: 12/24/20 12:00 - HPI HPI: 85-year-old female presents to the emergency department with a complaint of some shortness of breath and/or chest congestion that started last night. The patient does not speak Bur[place]ian and her daughter is at bedside translating for. She has a past medical history of coronary artery disease, CHF, pacemaker in situ. She was opposed to have an appointment today with her card cleaner, Dr. Bhakta, but it got rescheduled for next month. She denies any chest pain, lower extremity swelling, fever, cough, back pain. She did not take anything for symptoms and at the time of my examination she says that she is feeling completely back to normal. No recent travel or sick contacts at home. ED Past Medical Hx - Past Medical History Previous Medical History?: Yes Hx CVA: Yes Hx Heart Attack/AMI: Yes (2014) Hx Congestive Heart Failure: Yes Hx HIV: No Additional medical history: SANJUANITA - Surgical History Past Surgical History?: Yes Hx Coronary Stent: Yes Additional Surgical History: cataracts - Social History Smoking Status: Never Smoker - Medications Home Medications: Home Medications Medication Instructions Recorded Confirmed Last Taken Type Aspirin [Aspir-Low] 81 mg PO DAILY 04/24/18 02/04/19 02/03/19 History Clopidogrel [Plavix] 75 mg PO QDAY #30 tablet 04/25/18 02/04/19 02/03/19 Rx Rosuvastatin Calcium 40 mg PO DAILY 02/04/19 02/04/19 02/03/19 History carvediloL [Coreg] 6.25 mg PO BID 02/04/19 02/04/19 02/03/19 History HYDROcodone/APAP 5-325 [[place] 1 each PO Q6H PRN #10 tablet 02/05/19 Unknown Rx 5-325 mg TAB] ED Review of Systems ROS: Stated complaint: SOB Other details as noted in HPI Comment: All other systems reviewed and negative Constitutional: denies: chills, fever Eyes: denies: eye pain, vision change ENT: denies: ear pain, throat pain Respiratory: shortness of breath, SOB with exertion. denies: cough Cardiovascular: denies: chest pain, edema Gastrointestinal: denies: abdominal pain, vomiting Genitourinary: denies: dysuria, discharge Musculoskeletal: denies: back pain, arthralgia Skin: denies: rash, lesions Neurological: denies: headache, weakness Physical Exam - Physical Exam Vital Signs: Vital Signs 12/24/20 11:39 Temperature 98 F Pulse Rate 62 Respiratory 16 Rate Blood Pressure 107/42 [Left] O2 Sat by Pulse 98 Oximetry Physical Exam: GENERAL: The patient is well-developed well-nourished. HENT: Normocephalic. Atraumatic. Patient has moist mucous membranes. EYES: Extraocular motions are intact. NECK: Supple. Trachea is midline. CHEST/LUNGS: Clear to auscultation. There is no respiratory distress noted. HEART/CARDIOVASCULAR: Regular. There is no tachycardia. There is no murmur. ABDOMEN: Abdomen is soft, nontender. Patient has normal bowel sounds. SKIN: Skin is warm and dry. NEURO: The patient is awake, alert, and oriented. The patient is cooperative. MUSCULOSKELETAL: There is no tenderness or deformity. There is no limitation range of motion. ED Course Vital Signs 12/24/20 11:39 Temperature 98 F Pulse Rate 62 Respiratory 16 Rate Blood Pressure 107/42 [Left] O2 Sat by Pulse 98 Oximetry ED Medical Decision Making - Radiology Data Radiology results: image reviewed interpreted by me: Chest x-ray does not show any acute process. There are no pleural effusions, obvious pneumonia and there is no pneumothorax. No widened mediastinum. - Medical Decision Making This patient presents to the emergency department with a complaint of having some shortness of breath since last night that worsened with exertion. However, by the time she presents to the emergency department she is asymptomatic. She denies any current shortness of breath. She denied any chest pain, lower extremity swelling, fever, cough. Vital signs reassuring including being afebrile. Patient will follow up with primary care and cardiology. She will return to the emergency department with any return of her symptoms or with any acute distress. Critical Care Time: No Critical care attestation.: If time is entered above; I have spent that time in minutes in the direct care of this critically ill patient, excluding procedure time. ED Disposition Clinical Impression: Shortness of breath Disposition: HOME / SELF CARE / HOMELESS Is pt being admited?: No Condition: Stable Instructions: Shortness of Breath, Adult Additional Instructions: Please follow-up with your primary care physician and card cleaner. Return to the emergency department with any worsening of your symptoms or with any acute distress. Referrals: KARMA BHAKTA MD [Staff Physician] - 3-5 Days PCP, Your [Other] - 3-5 Days Time of Disposition: 13:09
--- NOTE | 2020-12-24 13:07 | XRay Report ---
CHEST 2 VIEWS INDICATION / CLINICAL INFORMATION: SOB. COMPARISON: 02/04/19 FINDINGS: SUPPORT DEVICES: None. HEART / MEDIASTINUM: Heart is upper normal size. Left-sided single lead AICD is unchanged. Left coron kathy artery stent. LUNGS / PLEURA: No significant pulmonary or pleural abnormality. No pneumothorax. ADDITIONAL FINDINGS: No significant additional findings. IMPRESSION: 1. No acute findings. No change. Signer Name: Yadiel Reyes MD Signed: 12/24/2020 1:03 PM Workstation Name: [employer] [facility] [id number]
[2020-12-24 13:58] VITALS: BP 110/56
== END 2020-12-24 13:58 | disposition home or self-care (01) ==
LOC: ED 10:55
DX: R06.02 Shortness of breath (principal); Z86.79 Personal history of other diseases of the circulatory system
CPT/HCPCS: 71046; 99283